=== PATIENT | female | born 1985 | race Caucasian/White ===

== ENCOUNTER → 2020-01-17 | Outpatient (CLI) | payer BC ==
[~2020-01-17] MED LIST: LEVO1TAB PO
[2020-01-17 12:28] LABS: BASOPHILS # (AUTO) 0.05 x10^3/uL (0-0.1); BASOPHILS % (AUTO) 1 % (0-1); EOSINOPHILS # (AUTO) 0.08 x10^3/uL (0-0.4); EOSINOPHILS % (AUTO) 1 % (1-7); LYMPHOCYTES # (AUTO) 2.66 x10^3/uL (1-3.4); LYMPHOCYTES % (AUTO) 30 % (22-44); MD NO; MEAN CORPUSCULAR HEMOGLOBIN 32.2 pg (27.0-34.8); MEAN CORPUSCULAR HGB CONC 33.4 g/dL (32.4-35.8); MEAN CORPUSCULAR VOLUME 96.2 fL (80-100); MEAN PLATELET VOLUME 8.2 fL (7.4-10.4); MONOCYTES # (AUTO) 0.49 x10^3/uL (0.2-0.8); MONOCYTES % (AUTO) 6 % (2-9); NEUTROPHILS # (AUTO) 5.52 x10^3/uL (1.8-6.8); NEUTROPHILS % (AUTO) 63 % (42-75); PLATELET COUNT 253 x10^3/uL (130-400); RED BLOOD COUNT 4.36 x10^6/uL (3.82-5.3); RED CELL DISTRIBUTION WIDTH 13.2 % (9.6-15.2)
[2020-01-17 12:40] LABS: ALANINE AMINOTRANSFERASE 29 U/L (12-78); ALBUMIN 3.7 g/dL (3.4-5.0); ANION GAP 4 mmol/L (5-15); CALCIUM 9.4 mg/dL (8.5-10.1); CHLORIDE 106 mmol/L (98-107); CREATININE 0.79 mg/dL (0.55-1.02)
[2020-01-17 12:44] LABS: ALKALINE PHOSPHATASE 68 U/L (45-117); TOTAL PROTEIN 8.2 g/dL (6.4-8.2)
[2020-01-17 12:46] LABS: BILIRUBIN,TOTAL 0.5 mg/dL (0.2-1.0)
[2020-01-17 13:28] LABS: MICROSCOPIC AUTO
== END | disposition home or self-care (01) ==
LOC: STAR 11:09
PROVIDERS: ATTEND Obstetrics & Gynecology
DX: Z01.818 Encounter for other preprocedural examination (principal)
CPT/HCPCS: 36415; 80053; 81001; 84702; 85025; 87086

== ENCOUNTER 2020-01-26 05:49 | Day surgery (SDC) | payer BC ==
[~2020-01-26] VITALS: Ht 170.2 cm; Wt 65.9 kg
[2020-01-26] MEDS ORDERED: LACTATED RINGERS 1,000 ML IV SCH (06:36)
[2020-01-26 06:37] VITALS: BP 106/72
[2020-01-26] MEDS ORDERED: SILVER NITRATE STICK TP ONE (06:58)
[2020-01-26] MEDS ORDERED: BUPIVACAINE/PF-EPI 0.25% 1:200K ONE (06:58)
[2020-01-26] MEDS ORDERED: CHLORHEXIDINE 15 ML UDC MM ONE (07:00)
[2020-01-26 07:08] LABS: HCG UR SG 1.021 (1.003-1.030)
[2020-01-26] MEDS ORDERED: MIDAZOLAM 1 MG/ML, 2ML ONE (07:26)
[2020-01-26] MEDS ORDERED: FENTANYL PF 100 MCG/2ML ONE ×2 (07:26→09:13)
[2020-01-26] MEDS ORDERED: SUGAMMADEX 200 MG/2 ML IVPush ONE (08:25)
[2020-01-26] MEDS ORDERED: KETOROLAC 30 MG/1 ML ONE (08:25)
[2020-01-26] MEDS ORDERED: DIAZEPAM 5 MG/ML, 2ML IVPush PRN (08:30)
[2020-01-26] MEDS ORDERED: PROMETHAZINE 25 MG/ML, 1ML IV PRN (08:30)
[2020-01-26] MEDS ORDERED: ACETAMINOPHEN 325 MG TABLET PO PRN (08:30)
[2020-01-26] MEDS ORDERED: MEPERIDINE/PF 25MG/0.5ML IVPush PRN (08:30)
[2020-01-26] MEDS ORDERED: LABETALOL 5MG/ML, 20ML IV PRN (08:30)
[2020-01-26] MEDS ORDERED: HYDROmorphone 2 MG/ML, 1ML IVPush PRN (08:30)
[2020-01-26] MEDS ORDERED: ALBUTEROL SULFATE 2.5 MG/3 ML NPPB PRN (08:30)
[2020-01-26] MEDS ORDERED: FENTANYL PF 100 MCG/2ML IV PRN (08:30)
[2020-01-26] MEDS ORDERED: hydrALAzine 20 MG/ML, 1ML IV PRN (08:30)
[2020-01-26] MEDS ORDERED: OXYcodone 5 MG/5 ML ORAL.SOL UDC PO PRN (08:30)
[2020-01-26] MEDS ORDERED: ACETAMINOPHEN 650 MG/20.3 ML UDC ONE (09:03)
[2020-01-26] MEDS ORDERED: OXYcodone 5 MG/5 ML ORAL.SOL UDC ONE ×2 (09:03→09:13)
[2020-01-26] MEDS ORDERED: PROPOFOL 10 MG/ML, 20ML ONE (09:21)
[2020-01-26] MEDS ORDERED: DEXAMETHASONE 4 MG/ML, 1ML ONE (09:21)
[2020-01-26] MEDS ORDERED: SUCCINYLCHOLINE 20 MG/ML, 10ML ONE (09:21)
[2020-01-26] MEDS ORDERED: NEOSTIGMINE 1 MG/ML, 10ML ONE (09:21)
[2020-01-26] MEDS ORDERED: CEFAZOLIN 1,000 MG ONE (09:21)
[2020-01-26] MEDS ORDERED: GLYCOPYRROLATE 0.2MG/1ML, 5ML ONE (09:21)
[2020-01-26] MEDS ORDERED: ROCURONIUM 10MG/ML,5ML ONE (09:21)
[2020-01-26] MEDS ORDERED: ONDANSETRON 2MG/ML, 2ML ONE (09:21)
== END 2020-01-26 10:20 | disposition home or self-care (01) ==
LOC: OUT 05:49
PROVIDERS: ATTEND Obstetrics & Gynecology
DX: Z30.2 Encounter for sterilization (principal); Z98.890 Other specified postprocedural states; Z79.899 Other long term (current) drug therapy; Z87.891 Personal history of nicotine dependence; Z72.89 Other problems related to lifestyle; Z82.49 Family history of ischemic heart disease and other diseases of the circulatory system; Z83.3 Family history of diabetes mellitus
CPT/HCPCS: 36415; 58670; 81025; 86850; 86900; 87635; 88302; J0690; J1100; J1885; J2250; J2405; J2704; J3010; J7120; J2710; J0330